=== PATIENT | female | born 1965 | race Caucasian/White ===

== ENCOUNTER 2017-08-06 16:02 | Emergency (ER) | payer BC, OTHER ==
--- NOTE | 2017-08-06 19:11 | EDM.PDOC ---
ED HPI GENERAL MEDICAL PROBLEM - General Chief Complaint: ENT Problem Stated Complaint: SORE EAR Time Seen by Provider: 08/06/17 19:00 Source of Information: Reports: Patient History Limitations: Reports: No Limitations - History of Present Illness INITIAL COMMENTS - FREE TEXT/NARRATIVE: C/O right ear pain x 2 weeks, worse today. Was seen in [facility] last week and given nasal spray and cipro ear gtts, No sore throat nasal congestion, no cough no fever or chills. Right Ear Pain Score (Numeric/FACES): 2 - Related Data Allergies Allergy/AdvReac Type Severity Reaction Status Date / Time No Known Allergies Allergy Verified 08/06/17 16:57 Home Meds: Home Meds Ciprofloxacin/Dexamethasone [Ciprodex Otic Susp] 4 drop OT BID 08/06/17 [History ] Fluticasone Propionate [Flonase] 1 spray NASBOTH DAILY 08/06/17 [History] Lisinopril 20 mg PO DAILY 08/06/17 [History] glipiZIDE [Glucotrol XL] 5 mg PO BRK 08/06/17 [History] metFORMIN HCl [Metformin HCl] 500 mg PO BID 08/06/17 [History] Past Medical History Cardiovascular History: Reports: Hypertension PLUMBING MANAGER History: Reports: Endometriosis Endocrine/Metabolic History: Reports: Diabetes, Type II Oncologic (Cancer) History: Reports: Other (See Below) Other Oncologic History: endometreal Social & Family History - Tobacco Use Smoking Status *Q: Never Smoker Second Hand Smoke Exposure: No - Recreational Drug Use Recreational Drug Use: No ED ROS ENT - Review of Systems Review Of Systems: ROS reveals no pertinent complaints other than HPI. ED EXAM, ENT - Physical Exam Exam: See Below Exam Limited By: No Limitations General Appearance: Alert, No Apparent Distress Eye Exam: Bilateral Eye: EOMI Ears: Normal External Exam, TM Erythema (right), TM Fluid (purulent right). No : Normal Canal (left wnl, right, mild erythema) Nose: Normal Inspection Mouth/Throat: Normal Inspection Head: Atraumatic, Normocephalic Neck: Full Range of Motion, Lymphadenopathy (R) Respiratory/Chest: No Respiratory Distress, Lungs Clear Cardiovascular: Normal Peripheral Pulses, Regular Rate, Rhythm Neurological: Alert, Oriented Course - Vital Signs Last Recorded V/S: Last Vital Signs Temp 97.9 F 06/18/18 18:55 Pulse 95 08/06/17 18:55 Resp 18 08/06/17 18:55 BP 161/108 H 08/06/17 18:55 Pulse Ox 98 08/06/17 18:55 Departure - Departure Time of Disposition: 19:07 Disposition: Home, Self-Care 01 Condition: Good Clinical Impression: Otitis media Qualifiers: Otitis media type: suppurative Chronicity: acute Laterality: right Recurrence: not specified as recurrent Spontaneous tympanic membrane rupture: without spontaneous rupture Qualified Code(s): H66.001 - Acute suppurative otitis media without spontaneous rupture of ear drum, right ear Middle ear effusion Qualifiers: Laterality: right Qualified Code(s): H65.91 - Unspecified nonsuppurative otitis media, right ear - Discharge Information Instructions: Otitis Media, Adult, [id number] Forms: ED Department Discharge Additional Instructions: tylenol or ibuprofen for discomfort, may alternate every 4 hours as needed stop cipro ear drops may continue nasal spray as ordered Amoxicillin 100mg tonight then 500mg 3 times daily for 10days follow up as needed
== END 2017-08-06 19:18 | disposition home or self-care (01) ==
LOC: DL.ED 16:02
DX: H66.001 Acute suppurative otitis media without spontaneous rupture of ear drum, right ear (principal); H65.91 Unspecified nonsuppurative otitis media, right ear; I10 Essential (primary) hypertension; E11.9 Type 2 diabetes mellitus without complications; Z79.84 Long term (current) use of oral hypoglycemic drugs
CPT/HCPCS: 99282

== ENCOUNTER 2020-04-07 08:30 | Day surgery (SDC) | payer BC ==
[~2020-04-07 08:30] MED LIST: Acetaminophen 325 MG Tab PO PRN; Cataract Ophth Solution EYELF ONE; Moxifloxacin 0.5% Ophth Soln 3 ML Bottle EYELF ONE; Ondansetron 4 MG/2 ML SDV IVPUSH PRN; Phenylephrine 10% Ophth Soln 5 ML Bot EYELF ONE; Phenylephrine 10% Ophth Soln 5 ML Bot EYELF PRN; Povidone-Iodine 5% Sterile Ophth Soln 30 ML Bottle EYELF ONE; Proparacaine 0.5% Ophth Soln 15 ML Bottle EYELF ONE; Sodium Chloride 0.9% 10 ML Syringe FLUSH PRN; Timolol Maleate 0.5% Ophth Soln 5 ML Bottle EYELF ONE; Tropicamide 1% Ophth Soln 15 ML Bottle EYELF ONE
[2020-04-07] MEDS ORDERED: Midazolam 1 MG/ML 2 ML SDV IV ONE (08:31)
[2020-04-07] MEDS ORDERED: Dexamethasone 4 MG/ML SDV IV ONE (08:31)
[2020-04-07] MEDS ORDERED: Sodium Chloride 0.9% 10 ML Syringe IV ONE (08:31)
[2020-04-07] MEDS ORDERED: Apraclonidine 0.5% Ophth Soln 5 ML Bot EYELF ONE (09:22)
[2020-04-07] MEDS ORDERED: Lidocaine 1% 30 ML SDV ONE (09:22)
[2020-04-07] MEDS ORDERED: Tetracaine HCl/PF 0.5% 4 ML Bottle EYELF ONE (09:22)
[2020-04-07] MEDS ORDERED: Povidone-Iodine 5% Sterile Ophth Soln 30 ML Bottle EYELF ONE (09:22)
[2020-04-07] MEDS ORDERED: Dexamethasone/Neomycin/Polymyxin B Ophth Oint 3.5 GM Tube EYELF ONE (09:23)
[2020-04-07] MEDS ORDERED: Vancomycin 500 MG SDV EYELF ONE (09:23)
[2020-04-07] MEDS ORDERED: Balanced Salt Solution Ophth Irrig 500 ML Bottle IOCULAR ONE (09:23)
[2020-04-07] MEDS ORDERED: Diclofenac Sodium 0.1% Ophth Soln 5 ML Bottle EYELF ONE (09:23)
[2020-04-07] MEDS ORDERED: Chondroitin Sulfate/Hyaluronate Sodium Ophth Inj 0.75 ML Syringe EYELF ONE (09:24)
--- NOTE | 2020-04-07 10:17 | OR ---
DATE: 04/07/2020 PREOPERATIVE DIAGNOSIS: Visually significant mixed cataract, left eye. POSTOPERATIVE DIAGNOSIS: Visually significant mixed cataract, left eye. PROCEDURE: Extracapsular cataract extraction with intraocular lens implant, left eye. ANESTHESIA: Topical/local MAC. COMPLICATIONS: None. INDICATION: Ms. Brunson was seen in the clinic. She has complained of a progressive decrease in vision over the last 7 months. She has difficulty seeing words on the television, difficulty with bright lights and glare, difficulty driving. Her examination reveals visually significant mixed cataract. Visual acuity is at the level of 20/70. Oncoming light reveals a visual acuity of 20/unable. Examination reveals mixed nuclear, cortical, and central posterior subcapsular cataract. She saw her regular ash conveyor operator, Dr. Gurrola. Dr. Gurrola was unable to meet her visual needs with a change in glasses. I explained options, offered cataract surgery, and I explained risks preoperatively including, but not limited to infection, retinal detachment, loss of vision, need for additional surgery, and risks associated with anesthesia. We discussed implant options. She has requested a multifocal implant. I did explain the increased potential for glare, halo, and dysphotopsia. She also understands that she may still require glasses for some limited activities. OPERATIVE DESCRIPTION: After informed consent was obtained and the risks, benefits, and alternatives were explained, the patient was brought to the operative suite and topical anesthesia was administered. The patient was then prepped and draped in the sterile fashion and attention was placed on the left eye. A sterile lid speculum was placed into the left eye to allow operative exposure. A full-thickness paracentesis was made in the temporal portion of the operative eye. Preservative-free lidocaine 0.1 mL was injected into the anterior chamber followed by viscoelastic. A full-thickness corneal incision was then made into the anterior chamber. A bent needle cystotome was used to create a small kelly in the anterior capsule. The capsulorrhexis forceps was then used to create a 360-degree curvilinear capsulorrhexis. The nucleus was then removed using a phacoemulsification handpiece and the remaining cortical material was then removed with irrigation and aspiration handpiece. Following removal of the cortical material, the capsular bag was then inspected and noted to be free of any holes or tears. Viscoelastic was then injected into the capsular bag and the intraocular lens was inserted into the capsular bag. The implant was oriented to correspond with preoperative corneal muro made with the patient in the upright position. The viscoelastic material was then removed from both the anterior and posterior chambers and from behind the IOL. The lens and capsular bag were then reinspected. The IOL was well centered and the capsular bag intact. The wound and paracentesis sites were inspected and hydrated with balanced saline solution. Both were found to be self-sealing. The intraocular pressure was assessed digitally and found to be within normal range. A good red reflex was noted at the completion of the procedure. No complications occurred during the operation. At the completion of the procedure, Maxitrol, Voltaren, and Iopidine drops were placed into the operative eye. A sterile eye shield was placed over the operative eye and the patient was transported to the postoperative recovery area having tolerated the procedure well. Postoperative instructions were given along with a postoperative appointment. The patient was advised to call with any questions or concerns. [facility] /[id number]
== END 2020-04-07 10:25 | disposition home or self-care (01) ==
LOC: DL.SDS 08:30
PROVIDERS: ATTEND Ophthalmology
DX: E11.36 Type 2 diabetes mellitus with diabetic cataract (principal); H26.8 Other specified cataract; I10 Essential (primary) hypertension; E78.5 Hyperlipidemia, unspecified; Z85.89 Personal history of malignant neoplasm of other organs and systems; Z79.84 Long term (current) use of oral hypoglycemic drugs; Z79.899 Other long term (current) drug therapy; Z98.890 Other specified postprocedural states
CPT/HCPCS: 00142; 66984; A9270; J1100; J2250; J3370; V2788-GY

== ENCOUNTER 2020-04-14 08:23 | Day surgery (SDC) | payer BC ==
[2020-04-14] MEDS ORDERED: Midazolam 1 MG/ML 2 ML SDV IV ONE (08:24)
[2020-04-14] MEDS ORDERED: Sodium Chloride 0.9% 10 ML Syringe IV ONE (08:24)
[2020-04-14] MEDS ORDERED: Dexamethasone 4 MG/ML SDV IV ONE (08:24)
[2020-04-14] MEDS ORDERED: Sodium Chloride 0.9% 10 ML Syringe FLUSH PRN (08:30)
[2020-04-14] MEDS ORDERED: Ondansetron 4 MG/2 ML SDV IVPUSH PRN (08:30)
[2020-04-14] MEDS ORDERED: Cataract Ophth Solution EYERT ONE (08:30)
[2020-04-14] MEDS ORDERED: Timolol Maleate 0.5% Ophth Soln 5 ML Bottle EYERT ONE (08:30)
[2020-04-14] MEDS ORDERED: Proparacaine 0.5% Ophth Soln 15 ML Bottle EYERT ONE (08:30)
[2020-04-14] MEDS ORDERED: Tropicamide 1% Ophth Soln 15 ML Bottle EYERT ONE (08:30)
[2020-04-14] MEDS ORDERED: Phenylephrine 10% Ophth Soln 5 ML Bot EYERT PRN (08:30)
[2020-04-14] MEDS ORDERED: Moxifloxacin 0.5% Ophth Soln 3 ML Bottle EYERT ONE (08:30)
[2020-04-14] MEDS ORDERED: Phenylephrine 10% Ophth Soln 5 ML Bot EYERT ONE ×2 (08:30→09:35)
[2020-04-14] MEDS ORDERED: Acetaminophen 325 MG Tab PO PRN (08:30)
[2020-04-14] MEDS ORDERED: Povidone-Iodine 5% Sterile Ophth Soln 30 ML Bottle EYERT ONE ×2 (08:30→09:36)
[2020-04-14] MEDS ORDERED: Apraclonidine 0.5% Ophth Soln 5 ML Bot EYERT ONE (09:35)
[2020-04-14] MEDS ORDERED: Lidocaine 1% 30 ML SDV ONE (09:35)
[2020-04-14] MEDS ORDERED: Tetracaine HCl/PF 0.5% 4 ML Bottle EYERT ONE (09:35)
[2020-04-14] MEDS ORDERED: Diclofenac Sodium 0.1% Ophth Soln 5 ML Bottle EYERT ONE (09:35)
[2020-04-14] MEDS ORDERED: Balanced Salt Solution Ophth Irrig 500 ML Bottle IOCULAR ONE (09:36)
[2020-04-14] MEDS ORDERED: Chondroitin Sulfate/Hyaluronate Sodium Ophth Inj 0.75 ML Syringe EYERT ONE (09:36)
[2020-04-14] MEDS ORDERED: Vancomycin 500 MG SDV EYERT ONE (09:36)
--- NOTE | 2020-04-14 13:18 | OR ---
DATE: 04/14/2020 PREOPERATIVE DIAGNOSIS: Visually significant mixed cataract, right eye. POSTOPERATIVE DIAGNOSIS: Visually significant mixed cataract, right eye. PROCEDURE: Extracapsular cataract extraction with intraocular lens implant, right eye. ANESTHESIA: Topical/local MAC. COMPLICATIONS: None. INDICATION: Ms. Brunson was seen in the clinic. Examination revealed visually significant mixed cataract. She has difficulty with near vision, difficulty with driving, difficulty with bright lights. She has noticed a progressive change consultant the last 7 months. Examination reveals mixed cataract with best spectacle corrected vision of 20/25. Oncoming light reveals visual acuity of 20 unable. Examination reveals mixed nuclear and cortical cataract. I explained options, offered cataract surgery, and I explained risks, including, but not limited to, infection, retinal detachment, loss of vision, need for additional surgery, and risks associated with anesthesia. We discussed implant options. She has requested a Symfony implant. I did explain the increased potential for glare, halo, and dysphotopsia. I also explained that she may still require glasses for some activities. She voiced understanding with respect to risks and benefits and requested surgery to improve vision and function. OPERATIVE DESCRIPTION: After informed consent was obtained and the risks, benefits, and alternatives were explained, the patient was brought to the operative suite and topical anesthesia was administered. The patient was then prepped and draped in the sterile fashion and attention was placed on the right eye. A sterile lid speculum was placed into the right eye to allow operative exposure. A full-thickness paracentesis was made in the temporal portion of the operative eye. Preservative-free lidocaine 0.1 mL was injected into the anterior chamber followed by viscoelastic. A full-thickness corneal incision was then made into the anterior chamber. A bent needle cystotome was used to create a small kelly in the anterior capsule. The capsulorrhexis forceps was then used to create a 360-degree curvilinear capsulorrhexis. The nucleus was then removed using a phacoemulsification handpiece and the remaining cortical material was then removed with irrigation and aspiration handpiece. Following removal of the cortical material, the capsular bag was then inspected and noted to be free of any holes or tears. Viscoelastic was then injected into the capsular bag and the intraocular lens was inserted into the capsular bag. The implant was oriented to correspond with preoperative corneal muro made with the patient in the upright position. The viscoelastic material was then removed from both the anterior and posterior chambers and from behind the IOL. The lens and capsular bag were then reinspected. The IOL was well centered and the capsular bag intact. The wound and paracentesis sites were inspected and hydrated with balanced saline solution. Both were found to be self-sealing. The intraocular pressure was assessed digitally and found to be within normal range. A good red reflex was noted at the completion of the procedure. No complications occurred during the operation. At the completion of the procedure, Maxitrol, Voltaren, and Iopidine drops were placed into the operative eye. A sterile eye shield was placed over the operative eye and the patient was transported to the postoperative recovery area having tolerated the procedure well. Postoperative instructions were given along with a postoperative appointment. The patient was advised to call with any questions or concerns. [facility] /[id number]
== END 2020-04-14 10:45 | disposition home or self-care (01) ==
LOC: DL.SDS 08:23
PROVIDERS: ATTEND Ophthalmology
DX: E11.36 Type 2 diabetes mellitus with diabetic cataract (principal); H26.8 Other specified cataract; I10 Essential (primary) hypertension; E78.5 Hyperlipidemia, unspecified; E66.9 Obesity, unspecified; Z68.33 Body mass index [BMI] 33.0-33.9, adult; Z85.41 Personal history of malignant neoplasm of cervix uteri; Z79.84 Long term (current) use of oral hypoglycemic drugs; Z79.899 Other long term (current) drug therapy; Z98.890 Other specified postprocedural states
CPT/HCPCS: 00142; 66984; J1100; J2250; J3370; V2632